=== PATIENT | female | born 1970 | race American Indian/Alaskan Native ===

== ENCOUNTER 2018-01-25 08:13 | Outpatient (CLI) | payer BC ==
[2018-01-25 08:27] LABS: Basophils % (Auto) 0.3 % (0.0-1.8); Eosinophils # (Auto) 0.3 K/mm3 (0.0-0.4); Hematocrit 42.6 % (30.3-42.9); Hemoglobin 13.5 gm/dl (10.1-14.3); Lymphocytes # (Auto) 3.6 K/mm3 (1.2-5.4); Lymphocytes % (Auto) 42.1 % (13.4-35.0); Mean Corpuscular HGB Conc 32 % (30-34); Mean Corpuscular Hemoglobin 26 pg (28-32); Mean Corpuscular Volume 83 fl (79-97); Monocytes # (Auto) 0.6 K/mm3 (0.0-0.8); Monocytes % (Auto) 6.8 % (0.0-7.3); Platelet Count 287 K/mm3 (140-440); Red Blood Count 5.16 M/mm3 (3.65-5.03); Red Cell Distribution Width 14.3 % (13.2-15.2)
[2018-01-25 09:47] LABS: Alanine Aminotransferase 20 units/L (7-56); Albumin 4.2 g/dL (3.9-5); BUN/Creatinine Ratio 24; Blood Urea Nitrogen 17 mg/dL (7-17); Calcium 8.9 mg/dL (8.4-10.2); Hemolysis Index 2
[2018-01-25 09:54] LABS: Free T4 (Free Thyroxine) 1.29 ng/dL (0.76-1.46)
== END 2018-01-25 08:14 | disposition home or self-care (01) ==
LOC: LAB 08:13
PROVIDERS: ATTEND Internal Medicine
DX: E11.9 Type 2 diabetes mellitus without complications (principal); R05 Cough
CPT/HCPCS: 36415; 80053; 84439; 84443; 84480; 85025

== ENCOUNTER 2018-02-19 07:53 | Outpatient (CLI) | payer BC ==
--- NOTE | 2018-02-19 09:46 | Treadmill Report ---
TREADMILL STRESS TEST REFERRING PHYSICIAN: Bharathi Lora MD PROTOCOL: The patient was brought to the stress lab in a post-absorptive state, excised on a standard Bhanu protocol treadmill. The patient's baseline EKG was normal sinus rhythm, normal axis. Resting blood pressure is 120/80. The patient exercised for a total of 8 minutes and 26 seconds to achieve a peak heart rate of 140, which is approximately 80% of target heart rate. There are no dynamic ST changes, arrhythmias, or chest pain. We need to stop the test due to fatigue. No chest pain or arrhythmias. CONCLUSIONS: Nondiagnostic exercise stress test due to inability to achieve target heart rate. We will consider chemical stress test, nuclear perfusion imaging to complete further ischemic evaluation. JOB# [id number] JOHNNIE/ALIZA
== END 2018-02-19 07:54 | disposition home or self-care (01) ==
LOC: ECHO 07:53
PROVIDERS: ATTEND Internal Medicine Cardiovascular Disease
DX: R00.0 Tachycardia, unspecified (principal); R55 Syncope and collapse
CPT/HCPCS: 93017; 93306

== ENCOUNTER 2018-08-05 11:52 | Outpatient (CLI) | payer BC | END 2018-08-05 11:53 | disposition home or self-care (01) | LOC: WOUND 11:52 | CPT/HCPCS: 97605 ==

== ENCOUNTER 2018-08-08 10:50 | Outpatient (CLI) | payer BC ==
[2018-08-08] MEDS ORDERED: XYLOCAINE TOPICAL 4% TP ONE (10:52)
== END 2018-08-08 10:51 | disposition home or self-care (01) ==
LOC: WOUND 10:50
PROVIDERS: ATTEND Surgery
DX: T81.89XD Other complications of procedures, not elsewhere classified, subsequent encounter (principal); E11.622 Type 2 diabetes mellitus with other skin ulcer; L97.323 Non-pressure chronic ulcer of left ankle with necrosis of muscle; I10 Essential (primary) hypertension; Y83.8 Other surgical procedures as the cause of abnormal reaction of the patient, or of later complication, without mention of misadventure at the time of the procedure
CPT/HCPCS: 97605

== ENCOUNTER 2018-08-20 10:59 | Outpatient (CLI) | payer BC ==
[2018-08-20] MEDS ORDERED: XYLOCAINE TOPICAL 4% TP ONE (11:15)
== END 2018-08-20 11:00 | disposition home or self-care (01) ==
LOC: WOUND 10:59
PROVIDERS: ATTEND Surgery
DX: T81.89XD Other complications of procedures, not elsewhere classified, subsequent encounter (principal); E11.622 Type 2 diabetes mellitus with other skin ulcer; L97.323 Non-pressure chronic ulcer of left ankle with necrosis of muscle; M85.872 Other specified disorders of bone density and structure, left ankle and foot; E78.00 Pure hypercholesterolemia, unspecified; I10 Essential (primary) hypertension; K21.9 Gastro-esophageal reflux disease without esophagitis; Z90.710 Acquired absence of both cervix and uterus; Y83.8 Other surgical procedures as the cause of abnormal reaction of the patient, or of later complication, without mention of misadventure at the time of the procedure

== ENCOUNTER 2018-08-27 10:54 | Outpatient (CLI) | payer BC ==
[2018-08-27] MEDS ORDERED: XYLOCAINE TOPICAL 4% TP ONE (11:06)
== END 2018-08-27 10:55 | disposition home or self-care (01) ==
LOC: WOUND 10:54
PROVIDERS: ATTEND Surgery
DX: T81.89XD Other complications of procedures, not elsewhere classified, subsequent encounter (principal); E11.9 Type 2 diabetes mellitus without complications; I10 Essential (primary) hypertension; Y83.8 Other surgical procedures as the cause of abnormal reaction of the patient, or of later complication, without mention of misadventure at the time of the procedure

== ENCOUNTER 2018-09-03 10:25 | Outpatient (CLI) | payer BC ==
[2018-09-03] MEDS ORDERED: XYLOCAINE TOPICAL 4% TP ONE (11:10)
[2018-09-03] MEDS ORDERED: SILVER NITRATE TP ONE (11:11)
== END 2018-09-03 10:26 | disposition home or self-care (01) ==
LOC: WOUND 10:25
PROVIDERS: ATTEND Surgery
DX: T81.89XD Other complications of procedures, not elsewhere classified, subsequent encounter (principal); E11.622 Type 2 diabetes mellitus with other skin ulcer; L97.323 Non-pressure chronic ulcer of left ankle with necrosis of muscle; I10 Essential (primary) hypertension; Y83.8 Other surgical procedures as the cause of abnormal reaction of the patient, or of later complication, without mention of misadventure at the time of the procedure

== ENCOUNTER 2018-09-10 10:58 | Outpatient (CLI) | payer BC ==
[2018-09-10] MEDS ORDERED: XYLOCAINE TOPICAL 4% TP ONE (11:45)
[2018-09-10] MEDS ORDERED: SILVER NITRATE TP ONE (11:46)
== END 2018-09-10 10:59 | disposition home or self-care (01) ==
LOC: WOUND 10:58
PROVIDERS: ATTEND Surgery
DX: T81.89XD Other complications of procedures, not elsewhere classified, subsequent encounter (principal); E11.622 Type 2 diabetes mellitus with other skin ulcer; L97.323 Non-pressure chronic ulcer of left ankle with necrosis of muscle; I10 Essential (primary) hypertension; Y83.8 Other surgical procedures as the cause of abnormal reaction of the patient, or of later complication, without mention of misadventure at the time of the procedure

== ENCOUNTER 2018-09-17 11:11 | Outpatient (CLI) | payer BC ==
[2018-09-17] MEDS ORDERED: SILVER NITRATE TP ONE (11:59)
[2018-09-17] MEDS ORDERED: XYLOCAINE TOPICAL 4% TP ONE (12:56)
== END 2018-09-17 11:12 | disposition home or self-care (01) ==
LOC: WOUND 11:11
PROVIDERS: ATTEND Surgery
DX: T81.89XD Other complications of procedures, not elsewhere classified, subsequent encounter (principal); E11.622 Type 2 diabetes mellitus with other skin ulcer; L97.323 Non-pressure chronic ulcer of left ankle with necrosis of muscle; I10 Essential (primary) hypertension; Y83.8 Other surgical procedures as the cause of abnormal reaction of the patient, or of later complication, without mention of misadventure at the time of the procedure
CPT/HCPCS: 17250

== ENCOUNTER 2018-09-24 10:54 | Outpatient (CLI) | payer BC ==
[2018-09-24] MEDS ORDERED: XYLOCAINE TOPICAL 4% TP ONE (11:21)
[2018-09-24] MEDS ORDERED: SILVER NITRATE TP ONE (11:22)
== END 2018-09-24 10:55 | disposition home or self-care (01) ==
LOC: WOUND 10:54
PROVIDERS: ATTEND Surgery
DX: T81.89XD Other complications of procedures, not elsewhere classified, subsequent encounter (principal); E11.622 Type 2 diabetes mellitus with other skin ulcer; L97.323 Non-pressure chronic ulcer of left ankle with necrosis of muscle; I10 Essential (primary) hypertension; Y83.8 Other surgical procedures as the cause of abnormal reaction of the patient, or of later complication, without mention of misadventure at the time of the procedure

== ENCOUNTER 2018-10-01 08:09 | Outpatient (CLI) | payer BC ==
[2018-10-01] MEDS ORDERED: XYLOCAINE TOPICAL 4% TP ONE (08:30)
[2018-10-01] MEDS ORDERED: SILVER NITRATE TP ONE (08:44)
== END 2018-10-01 08:10 | disposition home or self-care (01) ==
LOC: WOUND 08:09
PROVIDERS: ATTEND Surgery
DX: T81.89XD Other complications of procedures, not elsewhere classified, subsequent encounter (principal); E11.622 Type 2 diabetes mellitus with other skin ulcer; L97.323 Non-pressure chronic ulcer of left ankle with necrosis of muscle; I10 Essential (primary) hypertension; Y83.8 Other surgical procedures as the cause of abnormal reaction of the patient, or of later complication, without mention of misadventure at the time of the procedure

== ENCOUNTER 2018-10-10 10:58 | Outpatient (CLI) | payer BC ==
[2018-10-10] MEDS ORDERED: XYLOCAINE TOPICAL 4% TP ONE (12:05)
== END 2018-10-10 10:59 | disposition home or self-care (01) ==
LOC: WOUND 10:58
PROVIDERS: ATTEND Surgery
DX: T81.89XD Other complications of procedures, not elsewhere classified, subsequent encounter (principal); L84 Corns and callosities; E11.622 Type 2 diabetes mellitus with other skin ulcer; L97.323 Non-pressure chronic ulcer of left ankle with necrosis of muscle; I10 Essential (primary) hypertension; Y83.8 Other surgical procedures as the cause of abnormal reaction of the patient, or of later complication, without mention of misadventure at the time of the procedure

== ENCOUNTER 2018-10-17 10:51 | Outpatient (CLI) | payer BC ==
[2018-10-17] MEDS ORDERED: XYLOCAINE TOPICAL 4% TP ONE (10:52)
== END 2018-10-17 10:52 | disposition home or self-care (01) ==
LOC: WOUND 10:51
PROVIDERS: ATTEND Surgery
DX: T81.89XD Other complications of procedures, not elsewhere classified, subsequent encounter (principal); E11.622 Type 2 diabetes mellitus with other skin ulcer; L97.323 Non-pressure chronic ulcer of left ankle with necrosis of muscle; L84 Corns and callosities; I10 Essential (primary) hypertension; Y83.8 Other surgical procedures as the cause of abnormal reaction of the patient, or of later complication, without mention of misadventure at the time of the procedure

== ENCOUNTER 2018-10-24 10:57 | Outpatient (CLI) | payer BC | END 2018-10-24 10:58 | disposition home or self-care (01) | LOC: WOUND 10:57 | PROVIDERS: ATTEND Surgery | DX: T81.89XD Other complications of procedures, not elsewhere classified, subsequent encounter (principal); E11.622 Type 2 diabetes mellitus with other skin ulcer; L97.323 Non-pressure chronic ulcer of left ankle with necrosis of muscle; L84 Corns and callosities; I10 Essential (primary) hypertension; Y83.8 Other surgical procedures as the cause of abnormal reaction of the patient, or of later complication, without mention of misadventure at the time of the procedure ==

== ENCOUNTER 2018-11-01 11:37 | Outpatient (CLI) | payer BC ==
[2018-11-01] MEDS ORDERED: XYLOCAINE TOPICAL 4% TP ONE (11:50)
[2018-11-01] MEDS ORDERED: SILVER NITRATE TP ONE (11:52)
== END 2018-11-01 11:38 | disposition home or self-care (01) ==
LOC: WOUND 11:37
PROVIDERS: ATTEND Surgery
DX: T81.89XD Other complications of procedures, not elsewhere classified, subsequent encounter (principal); E11.622 Type 2 diabetes mellitus with other skin ulcer; L97.323 Non-pressure chronic ulcer of left ankle with necrosis of muscle; I10 Essential (primary) hypertension; Y83.8 Other surgical procedures as the cause of abnormal reaction of the patient, or of later complication, without mention of misadventure at the time of the procedure
CPT/HCPCS: 87075; 87116; G0463; 87076; 87186; 99215

== ENCOUNTER 2018-11-08 13:35 | Outpatient (CLI) | payer BC ==
[2018-11-08] MEDS ORDERED: XYLOCAINE TOPICAL 4% TP ONE (13:52)
== END 2018-11-08 13:36 | disposition home or self-care (01) ==
LOC: WOUND 13:35
PROVIDERS: ATTEND Surgery
DX: T81.89XD Other complications of procedures, not elsewhere classified, subsequent encounter (principal); E11.622 Type 2 diabetes mellitus with other skin ulcer; L97.323 Non-pressure chronic ulcer of left ankle with necrosis of muscle; I10 Essential (primary) hypertension; Y83.8 Other surgical procedures as the cause of abnormal reaction of the patient, or of later complication, without mention of misadventure at the time of the procedure

== ENCOUNTER 2018-11-15 11:38 | Outpatient (CLI) | payer BC ==
[2018-11-15] MEDS ORDERED: XYLOCAINE TOPICAL 4% TP ONE (13:00)
[2018-11-15] MEDS ORDERED: SILVER NITRATE TP ONE (13:06)
== END 2018-11-15 11:39 | disposition home or self-care (01) ==
LOC: WOUND 11:38
PROVIDERS: ATTEND Surgery
DX: T81.89XD Other complications of procedures, not elsewhere classified, subsequent encounter (principal); E11.622 Type 2 diabetes mellitus with other skin ulcer; L97.323 Non-pressure chronic ulcer of left ankle with necrosis of muscle; I10 Essential (primary) hypertension; Y83.8 Other surgical procedures as the cause of abnormal reaction of the patient, or of later complication, without mention of misadventure at the time of the procedure
CPT/HCPCS: 97605

== ENCOUNTER 2018-11-22 13:11 | Outpatient (CLI) | payer BC ==
[2018-11-22] MEDS ORDERED: XYLOCAINE TOPICAL 4% TP NR (13:21)
[2018-11-22] MEDS ORDERED: AD OINTMENT TP SCH (14:00)
== END 2018-11-22 13:12 | disposition home or self-care (01) ==
LOC: WOUND 13:11
PROVIDERS: ATTEND Surgery
DX: T81.89XD Other complications of procedures, not elsewhere classified, subsequent encounter (principal); E11.622 Type 2 diabetes mellitus with other skin ulcer; L97.323 Non-pressure chronic ulcer of left ankle with necrosis of muscle; I10 Essential (primary) hypertension; Y83.8 Other surgical procedures as the cause of abnormal reaction of the patient, or of later complication, without mention of misadventure at the time of the procedure
CPT/HCPCS: 97605; 97607; A6250

== ENCOUNTER 2018-11-29 11:32 | Outpatient (CLI) | payer BC ==
[2018-11-29] MEDS ORDERED: XYLOCAINE TOPICAL 4% TP ONE (11:40)
== END 2018-11-29 11:33 | disposition home or self-care (01) ==
LOC: WOUND 11:32
PROVIDERS: ATTEND Surgery
DX: T81.89XD Other complications of procedures, not elsewhere classified, subsequent encounter (principal); E11.622 Type 2 diabetes mellitus with other skin ulcer; L97.323 Non-pressure chronic ulcer of left ankle with necrosis of muscle; I10 Essential (primary) hypertension; Y83.8 Other surgical procedures as the cause of abnormal reaction of the patient, or of later complication, without mention of misadventure at the time of the procedure
CPT/HCPCS: 99214; G0463

== ENCOUNTER 2018-12-06 11:31 | Outpatient (CLI) | payer BC | END 2018-12-06 11:32 | disposition home or self-care (01) | LOC: WOUND 11:31 | PROVIDERS: ATTEND Surgery | DX: T81.89XD Other complications of procedures, not elsewhere classified, subsequent encounter (principal); E11.622 Type 2 diabetes mellitus with other skin ulcer; L97.323 Non-pressure chronic ulcer of left ankle with necrosis of muscle; I10 Essential (primary) hypertension; Y83.8 Other surgical procedures as the cause of abnormal reaction of the patient, or of later complication, without mention of misadventure at the time of the procedure | CPT/HCPCS: 99212; G0463 ==

== ENCOUNTER 2018-12-31 10:06 | Outpatient (CLI) | payer BC ==
--- NOTE | 2018-12-31 10:40 | XRay Report ---
LEFT TIBIA/FIBULA, 2 views: History: Other fracture of upper and lower end of left fibula. The internally fixated distal fibular fracture is unchanged in position and alignment since 08/12/18. No fracture lines are evident on today's exam. The tibia is unremarkable. IMPRESSION: Healed, internally fixated distal fibular fracture.
== END 2018-12-31 10:07 | disposition home or self-care (01) ==
LOC: XRAY 10:06
PROVIDERS: ATTEND Orthopaedic Surgery
DX: S82.832D Other fracture of upper and lower end of left fibula, subsequent encounter for closed fracture with routine healing (principal); E78.00 Pure hypercholesterolemia, unspecified; I10 Essential (primary) hypertension; K21.9 Gastro-esophageal reflux disease without esophagitis; Z90.710 Acquired absence of both cervix and uterus; X58.XXXD Exposure to other specified factors, subsequent encounter

== ENCOUNTER 2019-02-07 08:13 | Outpatient (CLI) | payer BC | END 2019-02-07 08:14 | disposition home or self-care (01) | LOC: WOUND 08:13 | PROVIDERS: ATTEND Surgery | DX: T81.89XD Other complications of procedures, not elsewhere classified, subsequent encounter (principal); E11.622 Type 2 diabetes mellitus with other skin ulcer; L97.323 Non-pressure chronic ulcer of left ankle with necrosis of muscle; I10 Essential (primary) hypertension; Y83.8 Other surgical procedures as the cause of abnormal reaction of the patient, or of later complication, without mention of misadventure at the time of the procedure | CPT/HCPCS: 99214; G0463 ==

== ENCOUNTER 2019-02-14 09:06 | Outpatient (CLI) | payer BC | END 2019-02-14 09:07 | disposition home or self-care (01) | LOC: WOUND 09:06 | PROVIDERS: ATTEND Surgery | DX: T81.89XD Other complications of procedures, not elsewhere classified, subsequent encounter (principal); E11.622 Type 2 diabetes mellitus with other skin ulcer; L97.323 Non-pressure chronic ulcer of left ankle with necrosis of muscle; I10 Essential (primary) hypertension; Y83.8 Other surgical procedures as the cause of abnormal reaction of the patient, or of later complication, without mention of misadventure at the time of the procedure | CPT/HCPCS: 87075; 87076; 87116; 87186; G0463; 36415; 85025; 99214 ==

== ENCOUNTER 2019-02-20 16:08 | Outpatient (CLI) | payer BC ==
--- NOTE | 2019-02-20 16:56 | XRay Report ---
LEFT ANKLE 3 VIEWS INDICATION / CLINICAL INFORMATION: LEFT ANKLE PAIN ankle fracture in June 2018 with subsequent ORIF. Patient has history of infectio n at the site. COMPARISON: None available FINDINGS: BONES / JOINT(S): No acute fracture or subluxation. No significant arthritis. SOFT TISSUES: There is some mild soft tissue swelling noted ADDITIONAL FINDINGS: Screw-plate device is noted in the distal fibula as well as an additional fully threaded screw. No periosteal reaction is seen. No loosening is identified. There is no radiographic evidence of osteomyelitis. There are some subtle vascular calcifications in the posterior tibial artery. Signer Name: Micky Brice MD Signed: 02/20/2019 4:52 PM Workstation Name: [id number]
== END 2019-02-20 16:09 | disposition home or self-care (01) ==
LOC: XRAY 16:08
PROVIDERS: ATTEND Orthopaedic Surgery
DX: M25.562 Pain in left knee (principal); E78.00 Pure hypercholesterolemia, unspecified; I10 Essential (primary) hypertension; K21.9 Gastro-esophageal reflux disease without esophagitis; E03.9 Hypothyroidism, unspecified; Z90.710 Acquired absence of both cervix and uterus

== ENCOUNTER 2019-02-21 08:08 | Outpatient (CLI) | payer BC ==
[2019-02-21] MEDS ORDERED: XYLOCAINE TOPICAL 4% TP ONE (08:45)
== END 2019-02-21 08:09 | disposition home or self-care (01) ==
LOC: WOUND 08:08
PROVIDERS: ATTEND Surgery
DX: T81.89XD Other complications of procedures, not elsewhere classified, subsequent encounter (principal); E11.622 Type 2 diabetes mellitus with other skin ulcer; L97.323 Non-pressure chronic ulcer of left ankle with necrosis of muscle; I10 Essential (primary) hypertension; Y83.8 Other surgical procedures as the cause of abnormal reaction of the patient, or of later complication, without mention of misadventure at the time of the procedure

== ENCOUNTER 2019-03-06 07:34 | Outpatient (CLI) | payer BC ==
[2019-03-06 07:56] LABS: Basophils % (Auto) 0.5 % (0.0-1.8); Eosinophils # (Auto) 0.2 K/mm3 (0.0-0.4); Eosinophils % (Auto) 2.5 % (0.0-4.3); Hemoglobin 13.2 gm/dl (10.1-14.3); Lymphocytes # (Auto) 2.5 K/mm3 (1.2-5.4); Lymphocytes % (Auto) 37.9 % (13.4-35.0); Mean Corpuscular HGB Conc 34 % (30-34); Mean Corpuscular Volume 80 fl (79-97); Monocytes # (Auto) 0.4 K/mm3 (0.0-0.8); Monocytes % (Auto) 6.5 % (0.0-7.3); Platelet Count 276 K/mm3 (140-440); Red Blood Count 4.86 M/mm3 (3.65-5.03); Red Cell Distribution Width 14.1 % (13.2-15.2)
[2019-03-06 08:14] LABS: Alanine Aminotransferase 17 units/L (7-56); Albumin 4.2 g/dL (3.9-5); BUN/Creatinine Ratio 23; Blood Urea Nitrogen 14 mg/dL (7-17); Calcium 9.5 mg/dL (8.4-10.2); Chol/HDL Ratio 4.13 %; HDL Cholesterol 51 mg/dL (40-59); Hemolysis Index 9; LDL Cholesterol,Direct 158 mg/dL (50-130)
[2019-03-09 12:58] LABS: Vitamin D, 25-OH, D2 16 ng/mL
== END 2019-03-06 07:35 | disposition home or self-care (01) ==
LOC: LAB 07:34
PROVIDERS: ATTEND Internal Medicine
DX: E78.2 Mixed hyperlipidemia (principal); I10 Essential (primary) hypertension; E04.9 Nontoxic goiter, unspecified; E11.9 Type 2 diabetes mellitus without complications; E55.9 Vitamin D deficiency, unspecified; E53.8 Deficiency of other specified B group vitamins; E78.00 Pure hypercholesterolemia, unspecified; K21.9 Gastro-esophageal reflux disease without esophagitis; E03.9 Hypothyroidism, unspecified; Z90.710 Acquired absence of both cervix and uterus; Z79.899 Other long term (current) drug therapy
CPT/HCPCS: 36415; 80053; 80061; 82306; 82607; 82747; 83036; 84443; 85025

== ENCOUNTER 2019-03-07 08:20 | Outpatient (CLI) | payer BC ==
[2019-03-07] MEDS ORDERED: XYLOCAINE TOPICAL 4% TP ONE (08:39)
[2019-03-07] MEDS ORDERED: SILVER NITRATE TP ONE (08:39)
== END 2019-03-07 08:21 | disposition home or self-care (01) ==
LOC: WOUND 08:20
PROVIDERS: ATTEND Surgery
DX: T81.89XD Other complications of procedures, not elsewhere classified, subsequent encounter (principal); E11.622 Type 2 diabetes mellitus with other skin ulcer; L97.323 Non-pressure chronic ulcer of left ankle with necrosis of muscle; I10 Essential (primary) hypertension; Y83.8 Other surgical procedures as the cause of abnormal reaction of the patient, or of later complication, without mention of misadventure at the time of the procedure
CPT/HCPCS: 99214; G0463

== ENCOUNTER 2019-03-11 08:10 | Outpatient (CLI) | payer BC | END 2019-03-11 23:00 | disposition home or self-care (01) | LOC: LAB 08:10 | PROVIDERS: ATTEND Specialist | DX: E04.1 Nontoxic single thyroid nodule (principal); E27.9 Disorder of adrenal gland, unspecified | CPT/HCPCS: 36415; 84439; 84481 ==

== ENCOUNTER 2019-05-01 08:00 | Outpatient (CLI) | payer BC ==
[2019-05-01 08:43] LABS: Hematocrit 39.3 % (30.3-42.9); Hemoglobin 12.6 gm/dl (10.1-14.3); Mean Corpuscular HGB Conc 32 % (30-34); Mean Corpuscular Volume 80 fl (79-97); Platelet Count 269 K/mm3 (140-440); Red Blood Count 4.91 M/mm3 (3.65-5.03); Red Cell Distribution Width 13.7 % (13.2-15.2)
[2019-05-01 08:57] LABS: BUN/Creatinine Ratio 17; Blood Urea Nitrogen 12 mg/dL (7-17); Calcium 9.1 mg/dL (8.4-10.2); Hemolysis Index 0
[2019-05-01 09:24] LABS: Alanine Aminotransferase 18 units/L (7-56); Albumin 4.1 g/dL (3.9-5); Chol/HDL Ratio 3.48 %; HDL Cholesterol 50 mg/dL (40-59); LDL Cholesterol,Direct 116 mg/dL (50-130)
[2019-05-01 10:01] LABS: Free T4 (Free Thyroxine) 1.14 ng/dL (0.76-1.46)
== END 2019-05-01 08:01 | disposition home or self-care (01) ==
LOC: LAB 08:00
PROVIDERS: ATTEND Specialist
DX: E11.9 Type 2 diabetes mellitus without complications (principal); E04.2 Nontoxic multinodular goiter; D35.01 Benign neoplasm of right adrenal gland; E78.00 Pure hypercholesterolemia, unspecified; I10 Essential (primary) hypertension; K21.9 Gastro-esophageal reflux disease without esophagitis; Z90.710 Acquired absence of both cervix and uterus
CPT/HCPCS: 36415; 80053; 80061; 82024; 82088; 82533; 83036; 84244; 84439; 84443; 85027

== ENCOUNTER 2019-06-05 13:57 | Emergency (ER) | payer BC ==
[2019-06-05 14:06] VITALS: BP 162/81
--- NOTE | 2019-06-05 14:16 | Emergency Department Report ---
ED General Adult HPI - General Chief complaint: Allergic Reaction Stated complaint: ALLERGIC REACTION/WORK RELATED INCIDENT Time Seen by Provider: 06/05/19 14:10 Source: patient Mode of arrival: Ambulatory Limitations: No Limitations - History of Present Illness Initial comments: 48-year-old -Cyp[place] female presents to the emergency room for throat and lip itching and tingling after receiving a flu shot here at work. Patient reports he has an allergy to eggs, lisinopril, milk and shrimp. She does have a past medical history of diabetes, hypertension, tachycardic hypercholesterolemia and recent surgery with a left ankle and tib-fib repair one year ago 06/10/[address] Berkowitz. Patient reports that she is currently followed by Dr. Hopkins infectious disease for infection to her left ankle. Patient currently denies any shortness of breathing chest pain or feeling like her throat is closing up. -: This afternoon Severity scale (0 -10): 0 Improves with: none Worsens with: none Associated Symptoms: denies: chest pain, cough, diaphoresis, fever/chills, headaches, nausea/vomiting, shortness of breath Treatments Prior to Arrival: none - Related Data Home Medications Medication Instructions Recorded Confirmed Last Taken HYDROcodone/ACETAMINOPHEN 1 each PO PRN PRN 06/05/18 06/05/18 06/05/18 [Hydrocodone-Acetamin 5-325 mg] Ibuprofen [Motrin] 600 mg PO Q8H PRN 06/05/18 06/05/18 Unknown Metoprolol [Lopressor] 100 mg PO DAILY 06/05/18 06/06/18 06/05/18 Omeprazole Magnesium [PriLOSEC Otc] 20 mg PO PRN PRN 06/05/18 06/05/18 06/05/18 Sitagliptin Phosphate [Januvia] 100 mg PO DAILY 06/05/18 06/05/18 06/05/18 amLODIPine [Norvasc] 5 mg PO DAILY 06/05/18 06/05/18 06/05/18 Previous Rx's Medication Instructions Recorded Last Taken Type oxyCODONE [roxiCODONE] 5 mg PO Q6HR PRN #30 tablet 06/06/18 Unknown Rx Allergies Allergy/AdvReac Type Severity Reaction Status Date / Time adhesive Allergy Hives Verified 06/05/18 09:43 egg Allergy Swelling Verified 06/05/18 09:43 milk Allergy Hives Verified 06/05/18 09:43 nickel Allergy Swelling Verified 06/05/18 09:43 shrimp Allergy Anaphylaxis Verified 06/05/18 09:43 ED Review of Systems ROS: Stated complaint: ALLERGIC REACTION/WORK RELATED INCIDENT Other details as noted in HPI Comment: All other systems reviewed and negative ED Past Medical Hx - Past Medical History Previous Medical History?: Yes Hx Hypertension: Yes (2014) Hx Diabetes: Yes Hx GERD: (PRN MEDS) Hx Headaches / Migraines: Yes (MIGRAINES) Hx HIV: No - Surgical History Past Surgical History?: No - Social History Smoking Status: Never Smoker Substance Use Type: None - Medications Home Medications: Home Medications Medication Instructions Recorded Confirmed Last Taken Type HYDROcodone/ACETAMINOPHEN 1 each PO PRN PRN 06/05/18 06/05/18 06/05/18 History [Hydrocodone-Acetamin 5-325 mg] Ibuprofen [Motrin] 600 mg PO Q8H PRN 06/05/18 06/05/18 Unknown History Metoprolol [Lopressor] 100 mg PO DAILY 06/05/18 06/06/18 06/05/18 History Omeprazole Magnesium [PriLOSEC Otc] 20 mg PO PRN PRN 06/05/18 06/05/18 06/05/18 History Sitagliptin Phosphate [Januvia] 100 mg PO DAILY 06/05/18 06/05/18 06/05/18 History amLODIPine [Norvasc] 5 mg PO DAILY 06/05/18 06/05/18 06/05/18 History oxyCODONE [roxiCODONE] 5 mg PO Q6HR PRN #30 tablet 06/06/18 Unknown Rx ED Physical Exam - General Limitations: No Limitations General appearance: alert, in no apparent distress - Head Head exam: Present: atraumatic, normocephalic - Eye Eye exam: Present: normal appearance, PERRL - ENT ENT exam: Present: normal exam, normal orophraynx, mucous membranes moist - Neck Neck exam: Present: normal inspection, full ROM. Absent: tenderness - Respiratory Respiratory exam: Present: normal lung sounds bilaterally. Absent: respiratory distress - Cardiovascular Cardiovascular Exam: Present: regular rate, normal rhythm. Absent: systolic murmur, diastolic murmur, rubs, gallop - Neurological Exam Neurological exam: Present: alert, oriented X3, normal gait - Psychiatric Psychiatric exam: Present: normal affect, normal mood - Skin Skin exam: Present: warm, dry, intact, normal color. Absent: rash ED Course Vital Signs 06/05/19 14:03 Temperature 98 F Pulse Rate 81 Respiratory 18 Rate Blood Pressure 162/81 O2 Sat by Pulse 95 Oximetry ED Medical Decision Making - Medical Decision Making 48-year-old -[place]yp[place] female presents to the emergency room for throat and lip itching and tingling after receiving a flu shot here at work. Patient reports he has an allergy to eggs, lisinopril, milk and shrimp. She does have a past medical history of diabetes, hypertension, tachycardic hypercholesterolemia and recent surgery with a left ankle and tib-fib repair one year ago 06/10/[address] Berkowitz. Patient reports that she is currently followed by Dr. Hopkins infectious disease for infection to her left ankle. Patient currently denies any shortness of breathing chest pain or feeling like her throat is closing up. She'll be given Benadryl 25 mg by mouth. I refrain from use of steroids this patient reports she currently has an infection in her left lower leg. Patient appears to be comfortable. Patient will contact a friend to take her home. Critical care attestation.: If time is entered above; I have spent that time in minutes in the direct care of this critically ill patient, excluding procedure time. ED Disposition Clinical Impression: Allergic reaction Disposition: DC-01 TO HOME OR SELFCARE Is pt being admited?: No Does the pt Need Aspirin: No Condition: Stable Instructions: Allergies (ED) Additional Instructions: Continue with Benadryl as needed for itchy throat and lips. Return up back in the emergency room if there is any worsening of urine itching started to have swelling on a district throat was closing trouble breathing or chest pain. Referrals: PRIMARY CARE, [Primary Care Provider] - 3-5 Days EDER BRENNAN MD [Referring] - 3-5 Days Forms: Work/School Release Form(ED)
[2019-06-05] MEDS ORDERED: diphenhydrAMINE 25 MG CAP PO ONE (14:21)
== END 2019-06-05 14:48 | disposition home or self-care (01) ==
LOC: ED 13:57
DX: T78.40XA Allergy, unspecified, initial encounter (principal); Y92.89 Other specified places as the place of occurrence of the external cause; I10 Essential (primary) hypertension; E11.9 Type 2 diabetes mellitus without complications; G43.909 Migraine, unspecified, not intractable, without status migrainosus
CPT/HCPCS: 99282

== ENCOUNTER 2020-02-02 13:23 | Outpatient (CLI) | payer BC | END 2020-02-02 13:24 | disposition home or self-care (01) | LOC: WOUND 13:23 | PROVIDERS: ATTEND Surgery | DX: T81.89XD Other complications of procedures, not elsewhere classified, subsequent encounter (principal); E11.622 Type 2 diabetes mellitus with other skin ulcer; L97.323 Non-pressure chronic ulcer of left ankle with necrosis of muscle; I10 Essential (primary) hypertension; E78.00 Pure hypercholesterolemia, unspecified; Z90.710 Acquired absence of both cervix and uterus; Y83.8 Other surgical procedures as the cause of abnormal reaction of the patient, or of later complication, without mention of misadventure at the time of the procedure | CPT/HCPCS: 82962; G0463; 99204; 99214 ==

== ENCOUNTER 2020-03-30 08:27 | Outpatient (CLI) | payer BC ==
[2020-03-30 08:53] LABS: Hematocrit 40.5 % (30.3-42.9); Hemoglobin 14.2 gm/dl (10.1-14.3); Mean Corpuscular HGB Conc 35 % (30-34); Mean Corpuscular Volume 82 fl (79-97); Platelet Count 270 K/mm3 (140-440); Red Blood Count 4.98 M/mm3 (3.65-5.03); Red Cell Distribution Width 13.8 % (13.2-15.2)
[2020-03-30 09:11] LABS: Alanine Aminotransferase 38 units/L (7-56); Albumin 4.4 g/dL (3.9-5); Blood Urea Nitrogen 13 mg/dL (7-17); Calcium 9.4 mg/dL (8.4-10.2); Chol/HDL Ratio 3.89 %; HDL Cholesterol 57 mg/dL (40-59); Hemolysis Index 5; LDL Cholesterol,Direct 140 mg/dL (50-130)
[2020-03-30 09:14] LABS: BUN/Creatinine Ratio 19
[2020-03-30 09:22] LABS: Free T4 (Free Thyroxine) 1.27 ng/dL (0.76-1.46)
== END 2020-03-30 08:28 | disposition home or self-care (01) ==
LOC: LAB 08:27
PROVIDERS: ATTEND Specialist
DX: E11.9 Type 2 diabetes mellitus without complications (principal); E04.1 Nontoxic single thyroid nodule
CPT/HCPCS: 36415; 80053; 80061; 83036; 84439; 84443; 85027

== ENCOUNTER 2020-05-14 08:25 | Outpatient (CLI) | payer BC ==
[2020-05-14 09:14] LABS: Hematocrit 39.7 % (30.3-42.9); Mean Corpuscular HGB Conc 33 % (30-34); Mean Corpuscular Volume 81 fl (79-97); Platelet Count 269 K/mm3 (140-440); Red Blood Count 4.89 M/mm3 (3.65-5.03); Red Cell Distribution Width 13.9 % (13.2-15.2)
[2020-05-14 10:25] LABS: Chol/HDL Ratio 2.52 %; HDL Cholesterol 55 mg/dL (40-59); LDL Cholesterol,Direct 78 mg/dL (50-130)
[2020-05-14 10:42] LABS: Alanine Aminotransferase 36 units/L (7-56); Blood Urea Nitrogen 9 mg/dL (7-17); Calcium 9.1 mg/dL (8.4-10.2); Hemolysis Index 2
[2020-05-14 10:43] LABS: BUN/Creatinine Ratio 13
== END 2020-05-14 08:26 | disposition home or self-care (01) ==
LOC: LAB 08:25
PROVIDERS: ATTEND Specialist
DX: E11.9 Type 2 diabetes mellitus without complications (principal); E04.2 Nontoxic multinodular goiter
CPT/HCPCS: 36415; 80053; 80061; 83036; 85027

== ENCOUNTER 2020-07-09 06:30 | Emergency (ER) | payer BC ==
[2020-07-09 06:39] VITALS: BP 152/88
--- NOTE | 2020-07-09 07:14 | XRay Report ---
Cervical spine-3 views INDICATION: neck pain. COMPARISON: None. IMPRESSION: Normal alignment. Mild discogenic DJD at C5/6. No acute osseous or soft tissue abnorma lity. Signer Name: Lawrence Bush MD Signed: 07/09/2020 7:09 AM Workstation Name: [id number]
--- NOTE | 2020-07-09 07:23 | XRay Report ---
Bilateral shoulders-3 views each INDICATION: bilateral shoulder pain. COMPARISON: None. IMPRESSION: No acute osseous or soft tissue abnormality. No significant DJD. Signer Name: Lawrence Bush MD Signed: 07/09/2020 7:18 AM Workstation Name: [id number]
--- NOTE | 2020-07-09 07:38 | Emergency Department Report ---
ED Neck Pain/Injury HPI - General Chief Complaint: Neck Pain/Injury Stated Complaint: SHOULDER PAIN WORKPLACE INJURY Time Seen by Provider: 07/09/20 07:31 Mode of arrival: Ambulatory Limitations: No Limitations - History of Present Illness Initial Comments: The patient was evaluated in the emergency department for symptoms described in the history of present illness. He/she was evaluated in the context of the global COVID-19 pandemic, which necessitated consideration that the patient might be at risk for infection with the virus that causes COVID-19. Institutional protocols and algorithms that pertain to the evaluation of patients at risk for COVID-19 are in a state of rapid change based on information released by regulatory bodies including the CDC and federal and [facility] organizations. These policies and algorithms were followed during the patient's care in the emergency department. Please note that these policies, procedures and recommendations changed on a rapid basis. 49-year-old -[place] female who is well-known to this provider presents to the emergency room complaining of bilateral shoulder pain and neck pain for 1 year. Patient states that his worsening pain for the last 3 months and feels pain is job related. Patient denies any initial injury. Patient states is been using [id number] Delano balm heat and Tylenol. Patient does have a primary care provider. He has not tried ibuprofen or naproxen. Patient denies any initial injury. Patient reports she is compliant with her blood pressure medications. MD Complaint: neck pain, upper back pain Onset/Timin -: year(s) Radiation: right shoulder, left shoulder, upper back Severity: moderate Severity scale (0 -10): 8 Quality: sharp, stabbing, aching Consistency: constant Improves With: none Worsens With: movement of neck Treatments Prior to Arrival: none - Related Data Home Medications Medication Instructions Recorded Confirmed Last Taken Metoprolol [Lopressor] 100 mg PO DAILY 06/05/18 12/10/19 12/16/19 Omeprazole Magnesium [PriLOSEC Otc] 20 mg PO PRN PRN 06/05/18 12/10/19 12/16/19 Sitagliptin Phosphate [Januvia] 100 mg PO DAILY 06/05/18 12/10/19 12/16/19 amLODIPine [Norvasc] 5 mg PO DAILY 06/05/18 12/10/19 12/16/19 Rosuvastatin Calcium [Crestor] 20 mg PO DAILY 07/24/19 12/10/19 12/16/19 Previous Rx's Medication Instructions Recorded Last Taken Type Oxycodone HCl/Acetaminophen 1 each PO Q6HR PRN #30 tablet 12/17/19 Unknown Rx [Percocet 7.5/325 mg] Cetirizine HCl [ZyrTEC 10mg cap] 10 mg PO QDAY #30 capsule 03/22/20 Unknown Rx Famotidine [Pepcid] 20 mg PO BID #10 tablet 03/22/20 Unknown Rx predniSONE [Deltasone] 40 mg PO QDAY #10 tab 03/22/20 Unknown Rx Baclofen [Lioresal] 10 mg PO TID PRN #15 tab 07/09/20 Unknown Rx Ibuprofen [Motrin 600 MG tab] 600 mg PO Q8H PRN #30 tablet 07/09/20 Unknown Rx Allergies Allergy/AdvReac Type Severity Reaction Status Date / Time adhesive Allergy BRINK SKIN Verified 07/24/19 16:44 egg Allergy Nausea , Verified 07/24/19 16:44 GI UPSET iodine Allergy Anaphylaxis Verified 12/10/19 11:48 lisinopril Allergy Anaphylaxis Verified 07/24/19 16:44 milk Allergy Hives Verified 06/05/18 09:43 nickel Allergy Swelling Verified 06/05/18 09:43 povidone-iodine Allergy Rash Verified 12/10/19 11:48 [From Betadine] shrimp Allergy Anaphylaxis Verified 06/05/18 09:43 soap [From Betadine] Allergy Rash , Verified 12/10/19 11:49 BRINK TO SKIN propofol AdvReac Rash,THROAT Verified 12/10/19 12:32 SWELLING,LOW BP ED Review of Systems ROS: Stated complaint: SHOULDER PAIN WORKPLACE INJURY Other details as noted in HPI Comment: All other systems reviewed and negative ED Past Medical Hx - Past Medical History Previous Medical History?: Yes Hx Hypertension: Yes Hx Heart Attack/AMI: No Hx Diabetes: Yes Hx GERD: (PRN MEDS) Hx Liver Disease: No Hx Renal Disease: No Hx of Cancer: Yes (Uterine, cervical) Hx Headaches / Migraines: Yes (MIGRAINES) Hx HIV: No - Surgical History Past Surgical History?: Yes Additional Surgical History: left ankle. HYSterectomy - Social History Smoking Status: Never Smoker Substance Use Type: None - Medications Home Medications: Home Medications Medication Instructions Recorded Confirmed Last Taken Type Metoprolol [Lopressor] 100 mg PO DAILY 06/05/18 12/10/19 12/16/19 History Omeprazole Magnesium [PriLOSEC Otc] 20 mg PO PRN PRN 06/05/18 12/10/19 12/16/19 History Sitagliptin Phosphate [Januvia] 100 mg PO DAILY 06/05/18 12/10/19 12/16/19 History amLODIPine [Norvasc] 5 mg PO DAILY 06/05/18 12/10/19 12/16/19 History Rosuvastatin Calcium [Crestor] 20 mg PO DAILY 07/24/19 12/10/19 12/16/19 History Oxycodone HCl/Acetaminophen 1 each PO Q6HR PRN #30 tablet 12/17/19 Unknown Rx [Percocet 7.5/325 mg] Cetirizine HCl [ZyrTEC 10mg cap] 10 mg PO QDAY #30 capsule 03/22/20 Unknown Rx Famotidine [Pepcid] 20 mg PO BID #10 tablet 03/22/20 Unknown Rx predniSONE [Deltasone] 40 mg PO QDAY #10 tab 03/22/20 Unknown Rx Baclofen [Lioresal] 10 mg PO TID PRN #15 tab 07/09/20 Unknown Rx Ibuprofen [Motrin 600 MG tab] 600 mg PO Q8H PRN #30 tablet 07/09/20 Unknown Rx ED Physical Exam - General Limitations: No Limitations General appearance: alert, in no apparent distress - Head Head exam: Present: atraumatic, normocephalic - Eye Eye exam: Present: normal appearance - ENT ENT exam: Present: mucous membranes moist - Neck Neck exam: Present: tenderness, full ROM, other (No cervical tenderness) - Respiratory Respiratory exam: Absent: accessory muscle use - Back Exam Back exam: Present: normal inspection, full ROM, muscle spasm - Neurological Exam Neurological exam: Present: alert, oriented X3, normal gait - Psychiatric Psychiatric exam: Present: normal affect, normal mood - Skin Skin exam: Present: warm, dry, intact, normal color. Absent: rash ED Course Vital Signs 07/09/20 06:36 Temperature 98.0 F Pulse Rate 100 H Respiratory 18 Rate Blood Pressure 152/88 O2 Sat by Pulse 97 Oximetry ED Medical Decision Making - Radiology Data Radiology results: report reviewed Referring Physician:ED DOCPatient Name:JEET DILL POPEPatient ID:[id number] of :[id number]:FemaleAccession:[id number] Date:[id number] Status:Finalized Findings [facility] [address] [place] [address] XRay Report Signed Patient: JEET WAGNER MR#: [id number] : 1970 Acct:[id number] Age/Sex: 49 / F ADM Date: 07/09/20 Loc: ED Attending Dr: Ordering Physician: CAMELIA AVELAR MD Date of Service: 07/09/20 Procedure(s): XR spine cervical 2-3V Accession Number(s): [id number] cc: CAMELIA AVELAR MD Fluoro Time In Minutes: Cervical spine-3 views INDICATION: neck pain. COMPARISON: None. IMPRESSION: Normal alignment. Mild discogenic DJD at C5/6. No acute osseous or soft tissue abnormality. Signer Name: Lawrence Bush MD Signed: 07/09/2020 7:09 AM Workstation Name: [id number] Transcribed By: SAKSHI Dictated By: Lawrence Bush MD Electronically Authenticated By: Lawrence Bush MD Signed Date/Time: 07/09/20708 DD/ 7 TD/TT: Patient: JEET WAGNER MR#: [id number] : 1970 Acct:[id number] Age/Sex: 49 / F ADM Date: 07/09/20 Loc: ED Attending Dr: Ordering Physician: CAMELIA AVELAR MD Date of Service: 07/09/20 Procedure(s): XR shoulder BILAT 2+V Accession Number(s): [id number] cc: CAMELIA AVELAR MD Fluoro Time In Minutes: Bilateral shoulders-3 views each INDICATION: bilateral shoulder pain. COMPARISON: None. IMPRESSION: No acute osseous or soft tissue abnormality. No significant DJD. Signer Name: Lawrence Bush MD Signed: 07/09/2020 7:18 AM Workstation Name: [id number] Transcribed By: JW Dictated By: Lawrence Bush MD Electronically Authenticated By: Lawrence Bush MD Signed Date/Time: 07/09/20717 DD/ 7 TD/TT: - Medical Decision Making 49-year-old -[place] female who is well-known to this provider presents to the emergency room complaining of bilateral shoulder pain and neck pain for 1 year. Patient states that his worsening pain for the last 3 months and feels pain is job related. Patient denies any initial injury. Patient states is been using dpno-[id number]-yazccry Delano balm heat and Tylenol. Patient does have a primary care provider. He has not tried ibuprofen or naproxen. Patient denies any initial injury. Patient reports she is compliant with her blood pressure medications. X-rays of neck and shoulder are both within normal limits. This is most likely due to a cervical strain from repetitive work at her job. 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 Will recommend patient to try taking ibuprofen we will place her on baclofen for a few days and see if that helps. Patient will be referred to Dr. Berkowitz. Patient encouraged to drink plenty of water take periodic breaks with stretching. Critical care attestation.: If time is entered above; I have spent that time in minutes in the direct care of this critically ill patient, excluding procedure time. ED Disposition Clinical Impression: Cervical myofascial strain Disposition: DC-01 TO HOME OR SELFCARE Is pt being admited?: No Does the pt Need Aspirin: No Condition: Stable Instructions: Cervical Sprain Additional Instructions: X-rays are both negative. I recommend baclofen which is a muscle relaxant take 3 times a day with plenty of water pill where not to operate heavy machinery while taking this medication. Also ibuprofen anti-inflammatory take that every 8 hours as needed for pain. Be sure to eat and drink with medication. Also recommend several parotic 5-minute breaks to allow you to stretch of her upper arms and neck. It is very important for you to follow-up with orthopedic provider as well as a neurologist I have listed their information below for your convenience. Prescriptions: Baclofen [Lioresal] 10 mg PO TID PRN #15 tab PRN Reason: Muscle Spasm Ibuprofen [Motrin 600 MG tab] 600 mg PO Q8H PRN #30 tablet PRN Reason: Pain Referrals: CHARMAINE BERKOWITZ MD [Staff Physician] - 3-5 Days NAHID CLINE II, MD [Staff Physician] - 3-5 Days Forms: Work/School Release Form(ED)
== END 2020-07-09 07:52 | disposition home or self-care (01) ==
LOC: ED 06:30
DX: S16.1XXA Strain of muscle, fascia and tendon at neck level, initial encounter (principal); G43.909 Migraine, unspecified, not intractable, without status migrainosus; E11.9 Type 2 diabetes mellitus without complications; I10 Essential (primary) hypertension; Z91.041 Radiographic dye allergy status; Z91.011 Allergy to milk products; Z91.012 Allergy to eggs; Z88.8 Allergy status to other drugs, medicaments and biological substances; Z90.710 Acquired absence of both cervix and uterus; Z98.890 Other specified postprocedural states; Z79.899 Other long term (current) drug therapy; X58.XXXA Exposure to other specified factors, initial encounter; Y93.89 Activity, other specified; Y92.89 Other specified places as the place of occurrence of the external cause; Y99.8 Other external cause status
CPT/HCPCS: 72040

== ENCOUNTER 2020-10-12 09:17 | Outpatient (CLI) | payer BC ==
[2020-10-12 09:59] LABS: Hematocrit 41.8 % (30.3-42.9); Hemoglobin 13.5 gm/dl (10.1-14.3); Mean Corpuscular HGB Conc 32 % (30-34); Mean Corpuscular Volume 81 fl (79-97); Platelet Count 311 K/mm3 (140-440); Red Blood Count 5.18 M/mm3 (3.65-5.03); Red Cell Distribution Width 14.3 % (13.2-15.2)
[2020-10-12 10:23] LABS: Alanine Aminotransferase 32 units/L (7-56); Albumin 4.4 g/dL (3.9-5); BUN/Creatinine Ratio 19; Blood Urea Nitrogen 13 mg/dL (7-17); Calcium 9.3 mg/dL (8.4-10.2); Chol/HDL Ratio 3.03 %; HDL Cholesterol 57 mg/dL (40-59); Hemolysis Index 3; LDL Cholesterol,Direct 111 mg/dL (50-130)
== END 2020-10-12 09:18 | disposition home or self-care (01) ==
LOC: LAB 09:17
PROVIDERS: ATTEND Specialist
DX: E11.9 Type 2 diabetes mellitus without complications (principal); E04.2 Nontoxic multinodular goiter; D35.01 Benign neoplasm of right adrenal gland
CPT/HCPCS: 36415; 80053; 80061; 82024; 82533; 83036; 85027

== ENCOUNTER 2020-12-26 10:13 | Emergency (ER) | payer BC ==
--- NOTE | 2020-12-26 10:46 | Emergency Department Report ---
Blank Doc - Documentation Documentation: 50-year-old female that presents with a syncopal episode. Patient stated she believes her blood sugar has dropped and had a syncopal episode and was complaining of headache, neck pain, left shoulder, humerus and left elbow pain. Patient otherwise denies any other symptoms or complaints. 1- This initial assessment/diagnostic orders/clinical plan/ treatment(s) is/are subject to change based on pt's health status, clinical progression and re- assessment by fellow clinical providers in the ED. Further treatment and workup at subsequent clinical provers discretion. Patient/guardians urged not to elope from ED as their condition may be serious if not clinically assessed and managed. 2-syncopal episode work-up with imaging studies
--- NOTE | 2020-12-26 10:59 | Cat Scan Report ---
CT cervical spine wo con, CT head/brain wo con INDICATION: syncope with neck pains. TECHNIQUE: CT head and cervical spine without contrast. All CT scans at this location are performed u sing CT dose reduction for ALARA by means of automated exposure control. COMPARISON: None. FINDINGS: HEAD: Intracranial: Dewitt-white matter differentiation is maintained. No intracranial hemorrhage. No extra a xial collection.. No hydrocephalus. No herniation. Sinuses: Paranasal sinuses and mastoid air cells are essentially clear. Orbits: Globes are intact Calvarium: No acute fracture. CERVICAL: Alignment: Straightening of the cervical spine. Vertebrae: No fracture. Vertebral body heights are preserved. C1 and C2 are congruent. Atlantooccipi lucinda joint is maintained. Spondylolysis: Mild spondylosis most pronounced at C5-C6. Soft tissues: No prevertebral soft tissue thickening. Additional findings: No significant additional findings. IMPRESSION: 1. No acute intracranial abnormality. 2.No cervical spine fracture. Signer Name: Dru Sanches MD Signed: 12/26/2020 10:55 AM Workstation Name: [id number]
[2020-12-26 11:12] LABS: Basophils % (Auto) 0.5 % (0.0-1.8); Eosinophils # (Auto) 0.2 K/mm3 (0.0-0.4); Eosinophils % (Auto) 1.8 % (0.0-4.3); Hematocrit 42.5 % (30.3-42.9); Hemoglobin 14.1 gm/dl (10.1-14.3); Lymphocytes # (Auto) 3.8 K/mm3 (1.2-5.4); Mean Corpuscular HGB Conc 33 % (30-34); Mean Corpuscular Volume 82 fl (79-97); Monocytes # (Auto) 0.5 K/mm3 (0.0-0.8); Platelet Count 289 K/mm3 (140-440); Red Blood Count 5.19 M/mm3 (3.65-5.03); Red Cell Distribution Width 14.1 % (13.2-15.2)
[2020-12-26 11:13] LABS: Alanine Aminotransferase 24 units/L (7-56); Albumin 4.1 g/dL (3.9-5); Blood Urea Nitrogen 11 mg/dL (7-17); Calcium 9.1 mg/dL (8.4-10.2); Hemolysis Index 27
[2020-12-26 11:16] LABS: BUN/Creatinine Ratio 16
[2020-12-26 11:22] LABS: INR 1.05 (0.87-1.13)
[2020-12-26 11:23] LABS: Partial Thromboplastin Time 26.7 Sec. (24.2-36.6)
--- NOTE | 2020-12-26 11:32 | XRay Report ---
LEFT SHOULDER 3 VIEW(S) INDICATION / CLINICAL INFORMATION: SYNCOPE WITH PAIN COMPARISON: None available. FINDINGS: BONES / JOINT(S): No acute fracture or subluxation. Mild degenerative arthrosis left AC joint SOFT TISSUES: No significant abnormality. ADDITIONAL FINDINGS: None. Signer Name: Hussein Sinha MD Signed: 12/26/2020 11:27 AM Workstation Name: [id number]
--- NOTE | 2020-12-26 11:32 | XRay Report ---
LEFT HUMERUS 2 VIEW(S) INDICATION / CLINICAL INFORMATION: SYNCOPE WITH PAIN COMPARISON: None available. FINDINGS: BONES / JOINT(S): No acute fracture or subluxation. No significant arthritis. SOFT TISSUES: No significant abnormality. ADDITIONAL FINDINGS: None. Signer Name: Hussein Sinha MD Signed: 12/26/2020 11:27 AM Workstation Name: [id number]
--- NOTE | 2020-12-26 11:32 | XRay Report ---
LEFT ELBOW 3 VIEW(S) INDICATION / CLINICAL INFORMATION: SYNCOPE WITH PAIN COMPARISON: None available. FINDINGS: BONES / JOINT(S): No acute fracture or subluxation. No significant arthritis. SOFT TISSUES: No significant abnormality. ADDITIONAL FINDINGS: None. Signer Name: Hussein Sinha MD Signed: 12/26/2020 11:28 AM Workstation Name: [id number]
--- NOTE | 2020-12-26 13:34 | Emergency Department Report ---
HPI - General Chief Complaint: Syncope Time Seen by Provider: 12/26/20 10:18 - HPI HPI: Room 23 The patient is a 50-year-old female present with a chief complaint of hypoglycemia/syncope. The patient states she took her insulin last night at 21: 00 and then went out. The patient states at approximately 03: 00 this morning while sitting on the sofa watching videos she began to feel and then got hot. Patient states her vision "got narrow" and then she awakened on the floor with family around her. Family checked her blood sugar at that time and found to be low at 47. Patient states she ate half of a sandwich. The patient states she injured her left shoulder during the syncopal episode and this prompted her to come to the hospital for evaluation. When asked how she is feeling the patient replies "fine." ED Past Medical Hx - Past Medical History Previous Medical History?: Yes Hx Hypertension: Yes Hx Diabetes: Yes Hx GERD: (PRN MEDS) Hx Headaches / Migraines: Yes (MIGRAINES) - Surgical History Past Surgical History?: Yes Additional Surgical History: left ankle. HYSterectomy - Family History Family history: no significant - Social History Smoking Status: Never Smoker Substance Use Type: None (Denies illicit drug use), Alcohol (Occasional) - Medications Home Medications: Home Medications Medication Instructions Recorded Confirmed Last Taken Type Metoprolol [Lopressor] 100 mg PO DAILY 06/05/18 12/10/19 12/16/19 History Omeprazole Magnesium [PriLOSEC Otc] 20 mg PO PRN PRN 06/05/18 12/10/19 12/16/19 History Sitagliptin Phosphate [Januvia] 100 mg PO DAILY 06/05/18 12/10/19 12/16/19 History amLODIPine [Norvasc] 5 mg PO DAILY 06/05/18 12/10/19 12/16/19 History Rosuvastatin Calcium [Crestor] 20 mg PO DAILY 07/24/19 12/10/19 12/16/19 History Oxycodone HCl/Acetaminophen 1 each PO Q6HR PRN #30 tablet 12/17/19 Unknown Rx [Percocet 7.5/325 mg] Cetirizine HCl [ZyrTEC 10mg cap] 10 mg PO QDAY #30 capsule 03/22/20 Unknown Rx Famotidine [Pepcid] 20 mg PO BID #10 tablet 03/22/20 Unknown Rx predniSONE [Deltasone] 40 mg PO QDAY #10 tab 03/22/20 Unknown Rx Baclofen [Lioresal] 10 mg PO TID PRN #15 tab 07/09/20 Unknown Rx Ibuprofen [Motrin 600 MG tab] 600 mg PO Q8H PRN #30 tablet 07/09/20 Unknown Rx Cyclobenzaprine [Flexeril] 10 mg PO TID PRN #10 tablet 12/26/20 Unknown Rx HYDROcodone/APAP 5-325 [Shelly 1 each PO Q6HR PRN #5 tablet 12/26/20 Unknown Rx 5/325] Ibuprofen [Motrin 800 MG tab] 800 mg PO Q8HR PRN #20 tablet 12/26/20 Unknown Rx ED Review of Systems ROS: Stated complaint: FAINTED AND LEFT ARM PAIN Other details as noted in HPI Constitutional: no symptoms reported Eyes: denies: eye pain ENT: denies: throat pain Respiratory: no symptoms reported Cardiovascular: denies: chest pain Endocrine: other (Hypoglycemia) Gastrointestinal: denies: abdominal pain Genitourinary: denies: dysuria Musculoskeletal: arthralgia, myalgia Neurological: denies: headache Physical Exam - Physical Exam Vital Signs: Vital Signs 12/26/20 10:18 Temperature 98.1 F Pulse Rate 99 H Respiratory 20 Rate Blood Pressure 187/96 O2 Sat by Pulse 99 Oximetry Physical Exam: GENERAL: The patient is well-developed well-nourished female lying on stretcher not appearing to be in acute distress. [] HEENT: Normocephalic. Atraumatic. Extraocular motions are intact. Patient has moist mucous membranes. NECK: Supple. Trachea midline. Mild tenderness to palpation of the axial cervical spine CHEST/LUNGS: Clear to auscultation. There is no respiratory distress noted. HEART/CARDIOVASCULAR: Regular. There is no tachycardia. There is no gallop rub or murmur. ABDOMEN: Abdomen is soft, nontender. Patient has normal bowel sounds. There is no abdominal distention. SKIN: There is no rash. There is no edema. There is no diaphoresis. NEURO: The patient is awake, alert, and oriented. The patient is cooperative. The patient has no focal neurologic deficits. The patient has normal speech. Cranial nerves II through XII grossly intact MUSCULOSKELETAL: There is tenderness to palpation of the left shoulder. Slightly decreased range of motion secondary to pain. ED Course Vital Signs 12/26/20 10:18 Temperature 98.1 F Pulse Rate 99 H Respiratory 20 Rate Blood Pressure 187/96 O2 Sat by Pulse 99 Oximetry - Reevaluation(s) Reevaluation #1: 12/26/20 15:02 Accu-Chek 134. Patient maintaining euglycemia and is not taking any sulfonylureas ED Medical Decision Making - Lab Data Result diagrams: 12/26/20 10:25 12/26/20 10:25 Laboratory Tests 12/26/20 12/26/20 12/26/20 10:21 10:25 10:25 WBC 8.5 RBC 5.19 H Hgb 14.1 Hct 42.5 MCV 82 MCH 27 L MCHC 33 RDW 14.1 Plt Count 289 Lymph % (Auto) 45.0 H [place] % (Auto) 6.0 Eos % (Auto) 1.8 Baso % (Auto) 0.5 Lymph # (Auto) 3.8 [place] # (Auto) 0.5 Eos # (Auto) 0.2 Baso # (Auto) 0.0 Seg Neutrophils % 46.7 Seg Neutrophils # 4.0 PT 13.5 INR 1.05 APTT 26.7 Sodium Potassium Chloride Carbon Dioxide Anion Gap BUN Creatinine Estimated GFR BUN/Creatinine Ratio Glucose POC Glucose 124 H Calcium Magnesium Total Bilirubin AST ALT Alkaline Phosphatase Troponin T Total Protein Albumin Albumin/Globulin Ratio HCG, Qual 12/26/20 12/26/20 10:25 10:25 WBC RBC Hgb Hct MCV MCH MCHC RDW Plt Count Lymph % (Auto) [place] % (Auto) Eos % (Auto) Baso % (Auto) Lymph # (Auto) [place] # (Auto) Eos # (Auto) Baso # (Auto) Seg Neutrophils % Seg Neutrophils # PT INR APTT Sodium 140 Potassium 3.9 Chloride 102.8 Carbon Dioxide 24 Anion Gap 17 BUN 11 Creatinine 0.7 Estimated GFR > 60 BUN/Creatinine Ratio 16 Glucose 121 H POC Glucose Calcium 9.1 Magnesium 2.10 Total Bilirubin 0.20 AST 24 ALT 24 Alkaline Phosphatase 140 H Troponin T < 0.010 Total Protein 8.0 Albumin 4.1 Albumin/Globulin Ratio 1.1 HCG, Qual Negative - Radiology Data Radiology results: report reviewed (CT head, CT cervical spine, left shoulder x- ray, left elbow x-ray, left numerous x-ray), image reviewed (CT head, CT cervical spine, left shoulder x-ray, left elbow x-ray, left numerous x-ray) interpreted by me: Left shoulder x-ray-no acute fracture, no dislocation. Left humerus x-ray-no acute fracture, no dislocation Left elbow x-ray-no acute fracture, no dislocation [address] [address] XRay Report Signed Patient: JEET WAGNER MR#: [id number] : 1 10/04/1969 Acct:[id number] Age/Sex: 50 / F ADM Date: 12/26/20 Loc: ED Attending Dr: Ordering Physician: KLEBER COPELAND NP Date of Service: 12/26/20 Procedure(s): XR shoulder 2+V LT Accession Number(s): [id number] cc: KLEBER COPELAND NP Fluoro Time In Minutes: LEFT SHOULDER 3 VIEW(S) INDICATION / CLINICAL INFORMATION: SYNCOPE WITH PAIN COMPARISON: None available. FINDINGS: BONES / JOINT(S): No acute fracture or subluxation. Mild degenerative arthrosis left AC joint SOFT TISSUES: No significant abnormality. ADDITIONAL FINDINGS: None. Signer Name: Hussein Sinha MD Signed: 12/26/2020 11:27 AM Workstation Name: [id number] Transcribed By: TL Dictated By: Hussein Sinha MD Electronically Authenticated By: Hussein Sinha MD Signed Date/Time: 12/26/201126 DD/ 26 TD/TT: Print [address] [address] XRay Report Signed Patient: JEET WAGNER MR#: [id number] : 1970 Acct:[id number] Age/Sex: 50 / F ADM Date: 12/26/20 Loc: ED Attending Dr: Ordering Physician: KLEBER COPELAND NP Date of Service: 12/26/20 Procedure(s): XR humerus 2+V LT Accession Number(s): [id number] cc: KLEBER COPELAND NP Fluoro Time In Minutes: LEFT HUMERUS 2 VIEW(S) INDICATION / CLINICAL INFORMATION: SYNCOPE WITH PAIN COMPARISON: None available. FINDINGS: BONES / JOINT(S): No acute fracture or subluxation. No significant arthritis. SOFT TISSUES: No significant abnormality. ADDITIONAL FINDINGS: None. Signer Name: Hussein Sinha MD Signed: 12/26/2020 11:27 AM Workstation Name: [id number] Transcribed By: TL Dictated By: Hussein Sinha MD Electronically Authenticated By: Hussein Sinha MD Signed Date/Time: 12/26/201126 DD/ 26 TD/TT: Print Cancel [address] [address] XRay Report Signed Patient: JEET WAGNER MR#: [id number] : 1970 Acct:[id number] Age/Sex: 50 / F ADM Date: 12/26/20 Loc: ED Attending Dr: Ordering Physician: KLEBER COPELAND NP Date of Service: 12/26/20 Procedure(s): XR elbow 3+V LT Accession Number(s): [id number] cc: KLEBER COPELAND NP Fluoro Time In Minutes: LEFT ELBOW 3 VIEW(S) INDICATION / CLINICAL INFORMATION: SYNCOPE WITH PAIN COMPARISON: None available. FINDINGS: BONES / JOINT(S): No acute fracture or subluxation. No significant arthritis. SOFT TISSUES: No significant abnormality. ADDITIONAL FINDINGS: None. Signer Name: Hussein rome MD Signed: 12/26/2020 11:28 AM Workstation Name: [id number] Transcribed By: TL Dictated By: Hussein Sinha MD Electronically Authenticated By: Hussein Sinha MD Signed Date/Time: 12/26/201127 DD/ 27 TD/TT: [address] [address] Cat Scan Report Signed Patient: JEET WAGNER MR#: [id number] : 1970 Acct:[id number] Age/Sex: 50 / F ADM Date: 12/26/20 Loc: ED Attending Dr: Ordering Physician: KLEBER COPELAND NP Date of Service: 12/26/20 Procedure(s): CT head/brain wo con Accession Number(s): [id number] cc: KLEBER COPELAND NP CT cervical spine wo con, CT head/brain wo con INDICATION: syncope with neck pains. TECHNIQUE: CT head and cervical spine without contrast. All CT scans at this location are performed using CT dose reduction for ALARA by means of automated exposure control. COMPARISON: None. FINDINGS: HEAD: Intracranial: Dewitt-white matter differentiation is maintained. No intracranial hemorrhage. No extra axial collection.. No hydrocephalus. No herniation. Sinuses: Paranasal sinuses and mastoid air cells are essentially clear. Orbits: Globes are intact Calvarium: No acute fracture. CERVICAL: Alignment: Straightening of the cervical spine. Vertebrae: No fracture. Vertebral body heights are preserved. C1 and C2 are congruent. Atlantooccipital joint is maintained. Spondylolysis: Mild spondylosis most pronounced at C5-C6. Soft tissues: No prevertebral soft tissue thickening. Additional findings: No significant additional findings. IMPRESSION: 1. No acute intracranial abnormality. 2.No cervical spine fracture. Signer Name: Dru Sanches MD Signed: 12/26/2020 10:55 AM Workstation Name: [id number] Transcribed By: CS Dictated By: Dru Sanches MD Electronically Authenticated By: Dru Sanches MD Signed Date/Time: 12/26/20 105 DD/ 105 TD/TT: [facility] [address] [place] [address] Cat Scan Report Signed Patient: JEET WAGNER MR#: [id number] : 1970 Acct:[id number] Age/Sex: 50 / F ADM Date: 12/26/20 Loc: ED Attending Dr: Ordering Physician: KLEBER COPELAND NP Date of Service: 12/26/20 Procedure(s): CT cervical spine wo con Accession Number(s): [id number] cc: KLEBER COPELAND NP CT cervical spine wo con, CT head/brain wo con INDICATION: syncope with neck pains. TECHNIQUE: CT head and cervical spine without contrast. All CT scans at this location are performed using CT dose reduction for ALARA by means of automated exposure control. COMPARISON: None. FINDINGS: HEAD: Intracranial: Dewitt-white matter differentiation is maintained. No intracranial hemorrhage. No extra axial collection.. No hydrocephalus. No herniation. Sinuses: Paranasal sinuses and mastoid air cells are essentially clear. Orbits: Globes are intact Calvarium: No acute fracture. CERVICAL: Alignment: Straightening of the cervical spine. Vertebrae: No fracture. Vertebral body heights are preserved. C1 and C2 are congruent. Atlantooccipital joint is maintained. Spondylolysis: Mild spondylosis most pronounced at C5-C6. Soft tissues: No prevertebral soft tissue thickening. Additional findings: No significant additional findings. IMPRESSION: 1. No acute intracranial abnormality. 2.No cervical spine fracture. Signer Name: Dru Sanches MD Signed: 12/26/2020 10:55 AM Workstation Name: [id number] Transcribed By: GARDENIA Dictated By: Dru Sanches MD Electronically Authenticated By: Dru Sanches MD Signed Date/Time: 12/26/20 105 DD/ 1053 T D/TT: Print Cancel - Differential Diagnosis Hypoglycemia, closed head injury, left shoulder contusion, cervical strain Critical care attestation.: If time is entered above; I have spent that time in minutes in the direct care of this critically ill patient, excluding procedure time. ED Disposition Clinical Impression: Hypoglycemia, Syncope, Contusion of left shoulder, Cervical strain, acute Disposition: DC-01 TO HOME OR SELFCARE Is pt being admited?: No Does the pt Need Aspirin: No Condition: Stable Instructions: Syncope (ED), Hypoglycemia, Contusion, Zeew-ro-Dptq Additional Instructions: Return to the emergency department should you develop worsening symptoms, inability to tolerate food or liquids, high fever or any other concerns Prescriptions: Cyclobenzaprine [Flexeril] 10 mg PO TID PRN #10 tablet PRN Reason: Muscle Spasm Ibuprofen [Motrin 800 MG tab] 800 mg PO Q8HR PRN #20 tablet PRN Reason: Pain, Moderate (4-6) HYDROcodone/APAP 5-325 [Shelly 5/325] 1 each PO Q6HR PRN #5 tablet PRN Reason: Pain Referrals: PRIMO TRACY MD [Primary Care Provider] - 3-5 Days Time of Disposition: 15:05
[2020-12-26 15:44] VITALS: BP 125/62
--- NOTE | 2020-12-28 10:28 | Electrocardiograph Report ---
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
== END 2020-12-26 15:35 | disposition home or self-care (01) ==
LOC: ED 10:13
DX: S16.1XXA Strain of muscle, fascia and tendon at neck level, initial encounter (principal); S40.012A Contusion of left shoulder, initial encounter; R55 Syncope and collapse; I10 Essential (primary) hypertension; E11.649 Type 2 diabetes mellitus with hypoglycemia without coma; G43.909 Migraine, unspecified, not intractable, without status migrainosus; M79.602 Pain in left arm; K21.9 Gastro-esophageal reflux disease without esophagitis; Z72.89 Other problems related to lifestyle; Z88.6 Allergy status to analgesic agent; Z91.018 Allergy to other foods; Z91.012 Allergy to eggs; Z91.011 Allergy to milk products; Z88.8 Allergy status to other drugs, medicaments and biological substances; Z79.899 Other long term (current) drug therapy; W18.39XA Other fall on same level, initial encounter; Y93.89 Activity, other specified; Y92.89 Other specified places as the place of occurrence of the external cause; Y99.8 Other external cause status
CPT/HCPCS: 36415; 70450; 72125; 80053; 82962; 83735; 84484; 84703; 85025; 85610; 85730; 93005; 99284

== ENCOUNTER 2021-01-11 08:50 | Outpatient (CLI) | payer BC ==
[2021-01-11 09:35] LABS: Alanine Aminotransferase 22 units/L (7-56); Albumin 4.6 g/dL (3.9-5); Blood Urea Nitrogen 10 mg/dL (7-17); Calcium 9.6 mg/dL (8.4-10.2); HDL Cholesterol 52 mg/dL (40-59); Hemolysis Index 2; LDL Cholesterol,Direct 100 mg/dL (50-130)
[2021-01-11 09:38] LABS: BUN/Creatinine Ratio 14
[2021-01-11 09:42] LABS: Free T4 (Free Thyroxine) 1.21 ng/dL (0.76-1.46)
== END 2021-01-11 08:51 | disposition home or self-care (01) ==
LOC: LAB 08:50
PROVIDERS: ATTEND Specialist
DX: E11.9 Type 2 diabetes mellitus without complications (principal); E04.2 Nontoxic multinodular goiter
CPT/HCPCS: 36415; 80053; 80061; 83036; 84439; 84443

== ENCOUNTER 2021-01-13 07:34 | Outpatient (CLI) | payer BC ==
--- NOTE | 2021-01-13 08:58 | XRay Report ---
RIGHT FOREARM 2 VIEWS INDICATION / CLINICAL INFORMATION: PAIN IN RIGHT FOREARM COMPARISON: None available. FINDINGS: BONES and JOINT(S): No acute fracture or subluxation. No significant arthritis. SOFT TISSUES: No significant abnormality. ADDITIONAL FINDINGS: None. IMPRESSION: 1. No acute findings. Signer Name: Tariq Sweeney MD Signed: 01/13/2021 8:53 AM Workstation Name: [id number]
--- NOTE | 2021-01-13 13:36 | Ultrasound Report ---
ULTRASOUND THYROID INDICATION / CLINICAL INFORMATION: RIGHT THYROID NODULE. COMPARISON: None available. FINDINGS: RIGHT LOBE: Size (cm) = 6.9 LEFT LOBE: Size (cm) = 0.1 ISTHMUS: Thickness (cm) = 0.5 APPEARANCE: Multinodular. SMALL NODULES < 1 cm: Multiple subcentimeter nodules noted bilaterally without suspicious features or meeting criteria for follow-up or biopsy per TI-RADS. NODULES >= 1 cm or SUSPICIOUS FEATURES (up to 4): - NODULE # 1 - Location: Right mid/lower lobe - Maximum Size (cm): 2.7 cm - Significant Change (>= 20% in 2 dim. & inc. >= 2mm): No prior study - Composition: Solid = 2 points - Echogenicity: Hyperechoic or Isoechoic = 1 point - Shape: Qkatx-pxsd-vuoz = 0 points - Margin: Ill-defined = 0 points - Echogenic Foci: None = 0 points - Additional Echogenic Foci: None = 0 points - Additional Findings: None. - ACR TI-RADS Score / Category = 3 points / TI-RADS 3 - NODULE # 2 - Location: Right upper lobe - Maximum Size (cm): 1.3 cm - Significant Change (>= 20% in 2 dim. & inc. >= 2mm): No prior study - Composition: Mixed cystic & solid = 1 point - Echogenicity: Hypoechoic = 2 points - Shape: Enxrh-bvyt-bmxh = 0 points - Margin: Smooth = 0 points - Echogenic Foci: Macrocalcifications = 1 point - Additional Echogenic Foci: None = 0 points - Additional Findings: None. - ACR TI-RADS Score / Category = 4 points / TI-RADS 4 - NODULE # 3 - Location: Left upper lobe - Maximum Size (cm): 1.5 cm - Significant Change (>= 20% in 2 dim. & inc. >= 2mm): No prior study - Composition: Mixed cystic & solid = 1 point - Echogenicity: Hyperechoic or Isoechoic = 1 point - Shape: Yeitj-lozp-vfun = 0 points - Margin: Smooth = 0 points - Echogenic Foci: None = 0 points - Additional Echogenic Foci: None = 0 points - Additional Findings: None. - ACR TI-RADS Score / Category = 2 points / TI-RADS 2 - NODULE # 4 - Location: Left lower lobe - Maximum Size (cm): 1.0 cm - Significant Change (>= 20% in 2 dim. & inc. >= 2mm): No prior study - Composition: Solid = 2 points - Echogenicity: Hypoechoic = 2 points - Shape: Odxwu-xyqw-qnec = 0 points - Margin: Smooth = 0 points - Echogenic Foci: None = 0 points - Additional Echogenic Foci: None = 0 points - Additional Findings: None. - ACR TI-RADS Score / Category = 4 points / TI-RADS 4 - No additional suspicious thyroid nodules. LYMPH NODES: No abnormal lymph nodes. PARATHYROID GLANDS: No abnormal parathyroid glands. ADDITIONAL FINDINGS: None. IMPRESSION: 1. Right mid/lower lobe thyroid nodule is 2.7 cm and TI-RADS 3 (Mildly Suspicious). - Recommendation: If >=2.5 cm, then FNA. If 1.5-2.49 cm, then follow-up at 1, 3, 5 years. If <1.5 cm, then no follow-up. 2. Right upper lobe thyroid nodule is 1.3 cm and TI-RADS 4 (Moderately Suspicious). - Recommendation: If >=1.5 cm, then FNA. If 1.0-1.49 cm, then follow-up at 1, 2, 3, 5 years. If <1 cm , then no follow-up. 3. Left upper lobe thyroid nodule is 1.5 cm and TI-RADS 2 (Not Suspicious). - Recommendation: No FNA or follow-up. 4. Left lower lobe thyroid nodule is 1.0 cm and TI-RADS 4 (Moderately Suspicious). - Recommendation: If >=1.5 cm, then FNA. If 1.0-1.49 cm, then follow-up at 1, 2, 3, 5 years. If <1 cm , then no follow-up. ACR TI-RADS Thyroid Nodule Recommendations TI-RADS 1 (0 pts) -- BENIGN. - No Fine Needle Aspirate biopsy (FNA) or follow-up. TI-RADS 2 (1-2 pts) -- NOT SUSPICIOUS. - No FNA or follow-up. TI-RADS 3 (3 pts) -- MILDLY SUSPICIOUS. - >= 2.5 cm: FNA. - 1.5-2.4 cm: Follow up at 1, 3, 5 years. - < 1.5 cm: No follow up. TI-RADS 4 (4-6 pts) -- MODERATELY SUSPICIOUS. - >= 1.5 cm: FNA. - 1.0-1.4 cm: Follow up at 1, 2, 3, 5 years. - < 1.0 cm: No follow up. TI-RADS 5 (7+ pts) -- HIGHLY SUSPICIOUS. - >= 1.0 cm: FNA. - 0.5-0.9 cm: Follow annually for 5 years. - 0.5 cm: No follow up. REFERENCE: ACR Thyroid Imaging, Reporting and Data System (TI-RADS): White Paper of the ACR TI-RADS C ommittee. J AM Ava Radiol 2017;14:587-595. NOTE: Nodules < 1 cm do not typically require follow-up or FNA unless there are suspicious features. NOTE: Nodule size maximum dimension determines whether a given lesion should be biopsied or followed. NOTE: If multiple nodules meet criteria for FNA, only the two (2) most suspicious nodules should be b iopsied. In addition, FNA of any suspicious cervical nodes should be biopsied. NOTE: Predominantly Cystic nodules and Spongiform nodules, composed predominantly (>50%) of small cys tic spaces, are considered benign (TI-RADS 1) regardless of other criteria. Signer Name: Dru Sanches MD Signed: 01/13/2021 1:31 PM Workstation Name: [email or web address]
== END 2021-01-13 07:35 | disposition home or self-care (01) ==
LOC: US 07:34
PROVIDERS: ATTEND Specialist
DX: E04.2 Nontoxic multinodular goiter (principal); M79.631 Pain in right forearm
CPT/HCPCS: 76536

== ENCOUNTER 2021-01-14 07:30 | Outpatient (CLI) | payer BC ==
--- NOTE | 2021-01-14 09:19 | Magnetic Resonance Report ---
MRI left shoulder without contrast INDICATION: PAIN IN LEFT SHOULDER, limited RANGE OF MOTION. COMPARISON: Left shoulder radiographs from 12/26/2020 FINDINGS: There is mild acromioclavicular and glenohumeral degenerative arthrosis with no acute osse ous abnormality or malalignment. There is a complete tear of the supraspinatus tendon with retraction to the 12:00 position of the hum eral head. There is borderline muscle belly atrophy which may reflect a component of chronicity. Ther e is also a full-thickness tear of the infraspinatus tendon with mild retraction as well and also carson ma extending centrally which may reflect a delaminating component of the tear. A high-grade partial-t hickness articular surface tear is present involving the subscapularis specifically the cranial one t hird to one half fibers. The biceps tendon is perched along the bicipital groove but not centrally di slocated. There is mild labral fraying near circumferentially but no discrete tear is identified. Mild subacromial/subdeltoid and subcoracoid bursitis is present. IMPRESSION: Degenerative changes in the shoulder with rotator cuff tendon tears/retraction and mild labral fraying near circumferentially. There is also mild bursitis about the shoulder. Signer Name: Lawrence Bush MD Signed: 01/14/2021 9:15 AM Workstation Name: [email or web address]
== END 2021-01-14 07:31 | disposition home or self-care (01) ==
LOC: MRI 07:30
PROVIDERS: ATTEND Orthopaedic Surgery
DX: S46.012A Strain of muscle(s) and tendon(s) of the rotator cuff of left shoulder, initial encounter (principal); M19.012 Primary osteoarthritis, left shoulder; M75.52 Bursitis of left shoulder; X58.XXXA Exposure to other specified factors, initial encounter; Y93.89 Activity, other specified; Y92.89 Other specified places as the place of occurrence of the external cause; Y99.8 Other external cause status

== ENCOUNTER 2021-04-04 11:55 | Outpatient (CLI) | payer BC ==
[2021-04-04 12:24] LABS: Basophils % (Auto) 0.5 % (0.0-1.8); Eosinophils # (Auto) 0.1 K/mm3 (0.0-0.4); Eosinophils % (Auto) 1.7 % (0.0-4.3); Hematocrit 39.6 % (30.3-42.9); Hemoglobin 13.1 gm/dl (10.1-14.3); Lymphocytes # (Auto) 2.8 K/mm3 (1.2-5.4); Lymphocytes % (Auto) 37.9 % (13.4-35.0); Mean Corpuscular HGB Conc 33 % (30-34); Mean Corpuscular Volume 82 fl (79-97); Monocytes # (Auto) 0.4 K/mm3 (0.0-0.8); Monocytes % (Auto) 5.7 % (0.0-7.3); Platelet Count 269 K/mm3 (140-440); Red Blood Count 4.85 M/mm3 (3.65-5.03)
[2021-04-04 12:43] LABS: Alanine Aminotransferase 16 units/L (7-56); Albumin 4.2 g/dL (3.9-5); Blood Urea Nitrogen 13 mg/dL (7-17); Calcium 9.6 mg/dL (8.4-10.2); Hemolysis Index 4
[2021-04-04 12:44] LABS: BUN/Creatinine Ratio 22
== END 2021-04-04 11:56 | disposition home or self-care (01) ==
LOC: LAB 11:55
PROVIDERS: ATTEND Specialist
DX: E11.9 Type 2 diabetes mellitus without complications (principal)
CPT/HCPCS: 36415; 80053; 83036; 85025

== ENCOUNTER 2021-06-03 07:41 | Outpatient (CLI) | payer BC ==
[2021-06-03 08:04] LABS: Basophils % (Auto) 0.6 % (0.0-1.8); Eosinophils # (Auto) 0.2 K/mm3 (0.0-0.4); Eosinophils % (Auto) 2.8 % (0.0-4.3); Hemoglobin 13.1 gm/dl (10.1-14.3); Lymphocytes % (Auto) 37.7 % (13.4-35.0); Mean Corpuscular HGB Conc 32 % (30-34); Mean Corpuscular Volume 82 fl (79-97); Monocytes # (Auto) 0.5 K/mm3 (0.0-0.8); Monocytes % (Auto) 6.1 % (0.0-7.3); Platelet Count 277 K/mm3 (140-440); Red Cell Distribution Width 13.7 % (13.2-15.2)
[2021-06-03 08:16] LABS: INR 0.92 (0.87-1.13)
[2021-06-03 08:17] LABS: Partial Thromboplastin Time 26.9 Sec. (24.2-36.6)
[2021-06-03 08:26] LABS: Alanine Aminotransferase 16 units/L (7-56); Albumin 4.2 g/dL (3.9-5); BUN/Creatinine Ratio 17; Blood Urea Nitrogen 12 mg/dL (7-17); Calcium 9.2 mg/dL (8.4-10.2); Chol/HDL Ratio 2.71 %; HDL Cholesterol 53 mg/dL (40-59); Hemolysis Index 6; LDL Cholesterol,Direct 85 mg/dL (50-130)
[2021-06-03 08:52] LABS: Bilirubin,Urine NEG (Negative); Blood,Urine NEG (Negative); Color,Urine Yellow (Yellow); Mucus,Urine FEW /HPF; Protein,Urine <15 mg/dL mg/dL (Negative); RBC,Urine < 1.0 /HPF (0.0-6.0); Urobilinogen,Urine < 2.0 mg/dL (<2.0)
== END 2021-06-03 07:42 | disposition home or self-care (01) ==
LOC: LAB 07:41
PROVIDERS: ATTEND Internal Medicine
DX: Z01.812 Encounter for preprocedural laboratory examination (principal); E78.2 Mixed hyperlipidemia; E55.9 Vitamin D deficiency, unspecified; E11.65 Type 2 diabetes mellitus with hyperglycemia; I10 Essential (primary) hypertension
CPT/HCPCS: 36415; 80053; 80061; 81001; 82306; 85025; 85610; 85730; 87086

== ENCOUNTER 2021-12-20 08:50 | Outpatient (CLI) | payer BC ==
[2021-12-20 11:06] LABS: Alanine Aminotransferase 17 units/L (7-56); Albumin 4.5 g/dL (3.9-5); Blood Urea Nitrogen 16 mg/dL (7-17); Calcium 9.1 mg/dL (8.4-10.2); Hemolysis Index 1
[2021-12-20 11:07] LABS: BUN/Creatinine Ratio 23
[2021-12-20 11:32] LABS: Free T4 (Free Thyroxine) 1.14 ng/dL (0.76-1.46)
[2021-12-23 12:15] LABS: Vitamin D, 25-OH, D2 8 ng/mL
== END 2021-12-20 08:51 | disposition home or self-care (01) ==
LOC: LAB 08:50
PROVIDERS: ATTEND Specialist
DX: E04.2 Nontoxic multinodular goiter (principal); E11.9 Type 2 diabetes mellitus without complications; D35.2 Benign neoplasm of pituitary gland
CPT/HCPCS: 36415; 80053; 82024; 82306; 82533; 83036; 84439; 84443

== ENCOUNTER 2022-02-16 07:24 | Outpatient (CLI) | payer BC ==
[2022-02-16 08:13] LABS: Chol/HDL Ratio 3.56 %; HDL Cholesterol 58 mg/dL (40-59); LDL Cholesterol,Direct 153 mg/dL (50-130)
[2022-02-16 08:41] LABS: Blood Urea Nitrogen 11 mg/dL (7-17)
--- NOTE | 2022-02-16 11:14 | Cat Scan Report ---
CT ABDOMEN AND PELVIS WITH CONTRAST--adrenal protocol HISTORY: D35.01 HX OF ADRENAL ADENOMA . COMPARISON: None. TECHNIQUE: CT images of the abdomen and pelvis were obtained following administration of intravenous contrast. All CT scans at this location are performed using CT dose reduction for ALARA by means of automated exposure control. CONTRAST: 100 ml of intravenous contrast administered. FINDINGS: Lungs/bones: Lung bases are clear. There are degenerative changes in the spine and pelvis with no ac [place]ak osseous abnormality. Abdomen/pelvis: The adrenal glands appear normal. There is no adrenal adenoma or mass. The liver, gallbladder, spleen, pancreas, kidneys, and proximal GI tract appear unremarkable. There is a tiny fat-containing umbilical hernia. Urinary bladder is unremarkable. Uterus is surgically absent. No pelvic free fluid. No acute colonic abnormality identified. The terminal ileum and the appendix appear normal. IMPRESSION: 1. No adrenal adenoma or mass identified. Normal appearance of the adrenal glands. 2. Otherwise unremarkable exam. Signer Name: Lawrence Bush MD Signed: 02/16/2022 11:09 AM Workstation Name: [employer]
[2022-02-20 16:24] LABS: Vitamin D, 25-OH, D2 9 ng/mL
== END 2022-02-16 07:25 | disposition home or self-care (01) ==
LOC: CT 07:24
PROVIDERS: ATTEND Specialist
DX: K42.9 Umbilical hernia without obstruction or gangrene (principal); D35.01 Benign neoplasm of right adrenal gland; E55.9 Vitamin D deficiency, unspecified; E11.9 Type 2 diabetes mellitus without complications; M47.819 Spondylosis without myelopathy or radiculopathy, site unspecified; Z90.710 Acquired absence of both cervix and uterus
CPT/HCPCS: 36415; 74178; 80061; 82024; 82306; 82533; 82565; 84520; Q9967